=== PATIENT | female | born 1995 | race Two or more races ===

== ENCOUNTER 2018-06-15 12:31 | Emergency (ER) | payer MEDICAID ==
[~2018-06-15] VITALS: Ht 170.2 cm; Wt 54.0 kg
[2018-06-15 12:55] VITALS: BP 122/73
== END 2018-06-15 13:47 | disposition home or self-care (01) ==
LOC: ER 12:31
DX: O26.891 Other specified pregnancy related conditions, first trimester (principal); J06.9 Acute upper respiratory infection, unspecified; Z3A.11 11 weeks gestation of pregnancy
CPT/HCPCS: 99282

== ENCOUNTER 2019-05-01 20:17 | Emergency (ER) | payer MEDICARE ==
[~2019-05-01] VITALS: Ht 167.6 cm; Wt 64.0 kg
[2019-05-02 02:00] VITALS: BP 123/74
== END 2019-05-02 02:04 | disposition home or self-care (01) ==
LOC: ER 20:17
DX: J45.909 Unspecified asthma, uncomplicated (principal)
CPT/HCPCS: 99283